=== PATIENT | male | born 1985 | race Hispanic/Latino ===

== ENCOUNTER 2017-05-13 13:33 | Outpatient (CLI) | payer OTHER ==
[2017-05-13 13:41] LABS: Basophils % (Auto) 0.8 % (0.0-1.8); Eosinophils % (Auto) 3.1 % (0.0-4.3); Hematocrit 42.6 % (35.5-45.6); Hemoglobin 14.5 gm/dl (11.8-15.2); Mean Corpuscular HGB Conc 34 % (32-34); Mean Corpuscular Hemoglobin 31 pg (28-32); Mean Corpuscular Volume 91 fl (84-94); Platelet Count 274 K/mm3 (140-440); Red Cell Distribution Width 12.4 % (13.2-15.2); White Blood Count 8.5 K/mm3 (4.5-11.0)
[2017-05-13 13:56] LABS: Alanine Aminotransferase 13 units/L (7-56); Albumin 4.8 g/dL (3.9-5); Alkaline Phosphatase 94 units/L (35-129); Anion Gap 18 mmol/L; BUN/Creatinine Ratio 9; Blood Urea Nitrogen 8 mg/dL (9-20); Calcium 9.5 mg/dL (8.4-10.2); Carbon Dioxide 27 mmol/L (22-30); Chloride 99.2 mmol/L (98-107); Glucose 96 mg/dL (75-100); Potassium 4.6 mmol/L (3.6-5.0); Sodium 140 mmol/L (137-145); Total Protein 7.2 g/dL (6.3-8.2)
== END 2017-05-13 13:34 | disposition home or self-care (01) ==
LOC: LABHHL 13:33
PROVIDERS: ATTEND Student in an Organized Health Care Education/Training Program
DX: R55 Syncope and collapse (principal)
CPT/HCPCS: 36415; 80053; 85025